=== PATIENT | female | born 2000 | race American Indian/Alaskan Native ===

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

== ENCOUNTER 2022-03-20 12:59 | Emergency (ER) | payer MEDICAID ==
--- NOTE | 2022-03-20 19:35 | Emergency Department Report ---
ED ENT HPI - General Chief complaint: Dental/Oral Stated complaint: BAD HEAD AND MOUTH PAIN Time Seen by Provider: 03/20/22 19:09 Source: patient Mode of arrival: Ambulatory Limitations: No Limitations - History of Present Illness Initial comments: 21-year-old female with no significant past medical history reports to the ER with complaints of sore throat with headache that started last night but got worse this morning. Patient reports pain with swallowing. Patient has not taking anything for her pain. Patient denies cough, chest pain, shortness of breath, weakness, chills. Patient reports no other acute symptoms at this time. - Related Data Previous Rx's Medication Instructions Recorded Last Taken Type Amoxicillin [Amoxicillin TAB] 875 mg PO BID 10 Days #20 tab 03/20/22 Unknown Rx Ibuprofen [Motrin] 600 mg PO Q8H PRN 7 Days #21 tablet 03/20/22 Unknown Rx Allergies Allergy/AdvReac Type Severity Reaction Status Date / Time No Known Allergies Allergy Unverified 11/14/19 00:11 ED Dental HPI - General Chief complaint: Dental/Oral Stated complaint: BAD HEAD AND MOUTH PAIN Time Seen by Provider: 03/20/22 19:09 Source: patient Mode of arrival: Ambulatory Limitations: No Limitations - Related Data Previous Rx's Medication Instructions Recorded Last Taken Type Amoxicillin [Amoxicillin TAB] 875 mg PO BID 10 Days #20 tab 03/20/22 Unknown Rx Ibuprofen [Motrin] 600 mg PO Q8H PRN 7 Days #21 tablet 03/20/22 Unknown Rx Allergies Allergy/AdvReac Type Severity Reaction Status Date / Time No Known Allergies Allergy Unverified 11/14/19 00:11 ED Review of Systems ROS: Stated complaint: BAD HEAD AND MOUTH PAIN Other details as noted in HPI Comment: All other systems reviewed and negative ENT: throat pain Neurological: headache ED Past Medical Hx - Past Medical History Previous Medical History?: No Hx Hypertension: (preeclampsia and HTN) - Surgical History Additional Surgical History: R leg sx 2016. nails, jacinto and a plate - Social History Smoking Status: Current Every Day Smoker Substance Use Type: None - Medications Home Medications: Home Medications Medication Instructions Recorded Confirmed Last Taken Type Amoxicillin [Amoxicillin TAB] 875 mg PO BID 10 Days #20 tab 03/20/22 Unknown Rx Ibuprofen [Motrin] 600 mg PO Q8H PRN 7 Days #21 tablet 03/20/22 Unknown Rx ED Physical Exam - General Limitations: No Limitations General appearance: alert, in no apparent distress - Head Head exam: Present: atraumatic, normocephalic - Eye Eye exam: Present: normal appearance - ENT ENT exam: Present: mucous membranes moist - Expanded ENT Exam Expanded Throat exam: Positive: tonsillar erythema, tonsillar exudate. Negative: R peritonsillar mass, L peritonsillar mass - Neck Neck exam: Present: normal inspection - Respiratory Respiratory exam: Present: normal lung sounds bilaterally. Absent: respiratory distress - Cardiovascular Cardiovascular Exam: Present: regular rate, normal rhythm. Absent: systolic murmur, diastolic murmur, rubs, gallop - GI/Abdominal GI/Abdominal exam: Present: soft, normal bowel sounds - Extremities Exam Extremities exam: Present: normal inspection - Back Exam Back exam: Present: normal inspection - Neurological Exam Neurological exam: Present: alert, oriented X3 - Psychiatric Psychiatric exam: Present: normal affect, normal mood - Skin Skin exam: Present: warm, dry, intact, normal color. Absent: rash ED Course Vital Signs 03/20/22 14:30 Temperature 99.2 F Pulse Rate 66 Respiratory 16 Rate Blood Pressure 165/107 [Left] O2 Sat by Pulse 100 Oximetry ED Medical Decision Making - Medical Decision Making 20-year-old female reports to the ER with complaints of sore throat and headache since late last night with worsening today. Patient reports taking no medication for symptoms. Patient reports pain with eating. No concerns of airway issues. Denies shortness of breath chest pain, dizziness, weakness and no cough. On physical exam there is erythema and tonsilar exudate and cervical adenopathy present. No concerns for peritonsillar abscess, no neck mass noted, no airway concerns. No nasal congestion. No cough present. Based on clinical findings patient will be treated for strep throat. Patient will be started on amoxicillin for treatment. Patient agrees with plan of care and verbalizes understanding. Patient informed if symptoms are to get worse to report back to the ER. No further work-up is needed at this time. Vital Signs 03/20/22 14:30 Temperature 99.2 F Pulse Rate 66 Respiratory 16 Rate Blood Pressure 165/107 [Left] O2 Sat by Pulse 100 Oximetry Critical care attestation.: If time is entered above; I have spent that time in minutes in the direct care of this critically ill patient, excluding procedure time. ED Disposition Clinical Impression: Sore throat Acute pharyngitis Qualifiers: Pharyngitis/tonsillitis etiology: unspecified etiology Qualified Code(s): J02.9 - Acute pharyngitis, unspecified Headache Qualifiers: Headache type: other headache syndrome Qualified Code(s): G44.89 - Other h eadache syndrome Disposition: 01 HOME / SELF CARE / HOMELESS Is pt being admited?: No Condition: Stable Instructions: Strep Throat, Adult, [id number], Pharyngitis, [id number] Prescriptions: Amoxicillin [Amoxicillin TAB] 875 mg PO BID 10 Days #20 tab Ibuprofen [Motrin] 600 mg PO Q8H PRN 7 Days #21 tablet PRN Reason: Pain Time of Disposition: 19:40
[2022-03-20 19:53] VITALS: BP 128/69
== END 2022-03-20 19:53 | disposition home or self-care (01) ==
LOC: ED 12:59
DX: R51.9 Headache, unspecified (principal); K13.79 Other lesions of oral mucosa; Z53.21 Procedure and treatment not carried out due to patient leaving prior to being seen by health care provider